=== PATIENT | male | born 1960 | race Caucasian/White ===

== ENCOUNTER 2023-04-29 10:03 | Outpatient (CLI) | payer MEDICARE | END 2023-04-29 10:04 | disposition home or self-care (01) | LOC: CSHCT 10:03 | PROVIDERS: ATTEND Nurse Practitioner Family | DX: H71.93 Unspecified cholesteatoma, bilateral (principal); H92.13 Otorrhea, bilateral; H74.8X3 Other specified disorders of middle ear and mastoid, bilateral | CPT/HCPCS: 70480 ==